=== PATIENT | female | born 1960 | race Caucasian/White ===

== ENCOUNTER 2018-06-06 14:25 | Observation (INO) | payer MEDICAID ==
[2018-06-06 16:01] LABS: ADD MAN DIFF? NO
[2018-06-06 16:21] LABS: ANION GAP 13 (8-16); BLOOD UREA NITROGEN 13 mg/dl (7-20); CALCIUM 9.7 mg/dl (8.4-10.2); CARBON DIOXIDE 25 mmol/L (21-31); CHLORIDE 105 mmol/L (97-110); CREATININE 0.53 mg/dl (0.44-1.00); GLUCOSE 169 mg/dl (70-220); POTASSIUM 4.2 mmol/L (3.5-5.1); SODIUM 139 mmol/L (135-144)
[2018-06-06 16:29] LABS: EOSINOPHILS % (M) 2 % (0-7); ERYTHROBLAST% (NRBC) (M) 1 % (0-0); GIANT THROMBO% (M) 4 % (0-0); LYMPHOCYTES % (M) 23 % (15-51); MONOCYTES % (M) 4 % (0-11); PLATELET ESTIMATE NORMAL; REACTIVE LYMPHOCYTES% (M) 4 % (0-0); SEGMENTED NEUTROPHILS (M) % 67 % (39-77); SMUDGE%M 1 % (0-0)
[2018-06-06] MEDS: ASPIRIN 81 MG TAB PO (16:36)
[2018-06-06 16:45] LABS: WHITE BLOOD COUNT 7.4 10^3/ul (4.8-10.8)
[2018-06-06 16:45] LABS: ABNORMAL IP MESSAGE 1; BASOPHIL # 0.1 10^3/ul (0.0-0.1); BASOPHILS % 0.8 % (0.0-2.0); EOSINOPHILS # 0.1 10^3/ul (0.0-0.5); HEMATOCRIT 39.6 % (37.0-47.0); HEMOGLOBIN 13.1 g/dl (12.0-16.0); LYMPHOCYTES # 1.8 10^3/ul (0.8-2.9); LYMPHOCYTES #M 1.7 10^3/ul (0.8-2.9); LYMPHOCYTES % 24.5 % (15.0-51.0); MEAN CORPUSCULAR HGB CONC 33.1 g/dl (32.0-37.0); MEAN CORPUSCULAR VOLUME 87.6 fl (82.0-101.0); MEAN PLATELET VOLUME 13.6 fl (7.4-10.4); MONOCYTE # 0.4 10^3/ul (0.3-0.9); MONOCYTE #M 0.2 10^3/ul (0.3-0.9); NEUTROPHILS % 67.2 % (39.0-77.0); PLATELET COUNT 154 10^3/UL (140-415); REACTIVE LYMPHOCYTES #M 0.2 10^3/ul (0.0-0.0); RED BLOOD COUNT 4.52 10^6/ul (4.20-5.40); RED CELL DISTRIBUTION WIDTH 12.4 % (11.5-14.5)
[2018-06-06 16:47] LABS: TROPONIN-I < 0.010 ng/ml (0.000-0.120)
[2018-06-06 16:56] LABS: POSITIVE DIFF @See below
[2018-06-06] MEDS ORDERED: ACETAMINOPHEN 325 MG TAB PO ×2 (17:30)
[2018-06-06] MEDS ORDERED: LORAZEPAM 0.5 MG TAB PO (17:30)
[2018-06-06] MEDS ORDERED: HYDROCODONE/APAP (5/325) TAB PO (17:30)
[2018-06-06] MEDS ORDERED: NITROGLYCERIN (SL) 0.4 MG TAB SL (17:30)
[2018-06-06] MEDS ORDERED: morphine 2 MG INJ IV (17:30)
[2018-06-06] MEDS ORDERED: DOCUSATE SODIUM 100 MG CAP PO (17:30)
[2018-06-06] MEDS ORDERED: NACL 0.9% 3 ML SYG IV (17:30)
[2018-06-06] MEDS ORDERED: ONDANSETRON 4 MG INJ IV ×2 (17:30)
[2018-06-06] MEDS ORDERED: MAGNESIUM HYDROXIDE 30ML CUP PO (17:30)
[2018-06-06] MEDS ORDERED: LABETALOL HCL 20MG INJ IV (18:00)
[2018-06-06 18:03] LABS: INR 0.97
[2018-06-06] MEDS ORDERED: GLUCAGON 1 MG INJ IM (18:30)
[2018-06-06] MEDS ORDERED: DEXTROSE 50% 50 ML SYRINGE IV ×2 (18:30)
[2018-06-06] MEDS ORDERED: GLUCOSE GEL 15 GRAM TUBE PO ×2 (18:30)
[2018-06-06] MEDS ORDERED: GLUCOSE GEL 15 GRAM TUBE BUCCAL (18:30)
[2018-06-06] MEDS: INSULIN ASPART [NOVOLOG] 3 ML PEN SC ×2 (19:24→21:28)
[2018-06-06] MEDS: ATORVASTATIN 40 MG TAB PO (21:25)
[2018-06-06] MEDS: LISINOPRIL 20 MG TAB PO (21:25)
[2018-06-06] MEDS: FAMOTIDINE 20 MG INJ IV (21:26)
[2018-06-06] MEDS: HEPARIN 5,000 UNIT/0.5 ML VIAL SC (21:43)
[2018-06-06 23:20] LABS: CREATINE KINASE 111 IU/L (23-200)
[2018-06-06 23:31] LABS: CK INDEX 0.8; CK-MB 0.93 ng/ml (0.0-2.4); TROPONIN-I < 0.010 ng/ml (0.000-0.120)
[2018-06-07] MEDS: ACCU-CHEK XX (02:23)
[2018-06-07] MEDS: HEPARIN 5,000 UNIT/0.5 ML VIAL SC ×3 (05:36→21:08)
[2018-06-07 05:43] LABS: ADD MAN DIFF? NO
[2018-06-07 06:07] LABS: ABNORMAL IP MESSAGE 1; BASOPHIL # 0.1 10^3/ul (0.0-0.1); BASOPHILS % 1.3 % (0.0-2.0); EOSINOPHILS # 0.2 10^3/ul (0.0-0.5); EOSINOPHILS % 2.9 % (0.0-7.0); HEMATOCRIT 38.2 % (37.0-47.0); HEMOGLOBIN 12.4 g/dl (12.0-16.0); LYMPHOCYTES # 2.3 10^3/ul (0.8-2.9); LYMPHOCYTES % 41.4 % (15.0-51.0); MEAN CORPUSCULAR HGB CONC 32.5 g/dl (32.0-37.0); MEAN CORPUSCULAR VOLUME 89.3 fl (82.0-101.0); MEAN PLATELET VOLUME 14.1 fl (7.4-10.4); MONOCYTE # 0.4 10^3/ul (0.3-0.9); MONOCYTES % 7.4 % (0.0-11.0); NEUTROPHIL # 2.6 10^3/ul (1.6-7.5); NEUTROPHILS % 46.8 % (39.0-77.0); PLATELET COUNT 156 10^3/UL (140-415); RED BLOOD COUNT 4.28 10^6/ul (4.20-5.40); RED CELL DISTRIBUTION WIDTH 12.7 % (11.5-14.5)
[2018-06-07 06:07] LABS: WHITE BLOOD COUNT 5.5 10^3/ul (4.8-10.8)
[2018-06-07 06:11] LABS: CREATINE KINASE 92 IU/L (23-200)
[2018-06-07 06:23] LABS: CK INDEX 0.8; CK-MB 0.77 ng/ml (0.0-2.4); TROPONIN-I < 0.010 ng/ml (0.000-0.120)
[2018-06-07 06:24] LABS: POSITIVE DIFF @See below
[2018-06-07 06:26] LABS: ALANINE AMINOTRANSFERASE 28 IU/L (13-69); ALBUMIN/GLOBULIN RATIO 1.25; ALKALINE PHOSPHATASE 91 IU/L (42-121); ANION GAP 10 (8-16); ASPARTATE AMINO TRANSFERASE 30 IU/L (15-46); BILIRUBIN,INDIRECT 0.6 mg/dl (0-1.1); BILIRUBIN,TOTAL 0.6 mg/dl (0.2-1.3); BLOOD UREA NITROGEN 15 mg/dl (7-20); CALCIUM 9.4 mg/dl (8.4-10.2); CARBON DIOXIDE 26 mmol/L (21-31); CHLORIDE 108 mmol/L (97-110); CHOL/HDL RATIO 3.7 RATIO; CHOLESTEROL 157 mg/dl (100-200); CREATININE 0.62 mg/dl (0.44-1.00); GLUCOSE 141 mg/dl (70-220); HDL CHOLESTEROL 42 mg/dl (37-92); LDL CHOLESTEROL,CALCULATED 89 mg/dl; POTASSIUM 4.1 mmol/L (3.5-5.1); SODIUM 140 mmol/L (135-144); TOTAL PROTEIN 7.2 g/dl (6.1-8.1); TRIGLYCERIDES 130 mg/dl (0-149)
[2018-06-07 07:35] LABS: HEMOGLOBIN A1C 8.2 % (0-5.9)
[2018-06-07] MEDS: INSULIN ASPART [NOVOLOG] 3 ML PEN SC ×4 (07:44→21:00)
[2018-06-07] MEDS: ASPIRIN 81 MG TAB PO (08:02)
[2018-06-07] MEDS: LISINOPRIL 20 MG TAB PO (08:02)
[2018-06-07] MEDS: FAMOTIDINE 20 MG INJ IV ×2 (08:02→21:04)
[2018-06-07] MEDS: LINAGLIPTIN 5 MG TABLET PO (09:58)
[2018-06-07] MEDS: metFORMIN 500 MG TAB PO ×2 (09:58→17:18)
[2018-06-07] MEDS ORDERED: morphine LIQ (10 MG/5 ML) CUP PO (20:30)
[2018-06-07] MEDS: ATORVASTATIN 40 MG TAB PO (21:04)
[2018-06-08] MEDS: ACCU-CHEK XX (02:00)
[2018-06-08] MEDS: HEPARIN 5,000 UNIT/0.5 ML VIAL SC ×2 (05:45→14:00)
[2018-06-08 06:40] LABS: ADD MAN DIFF? NO
[2018-06-08 06:43] LABS: WHITE BLOOD COUNT 6.9 10^3/ul (4.8-10.8)
[2018-06-08 06:43] LABS: ABNORMAL IP MESSAGE 1; BASOPHIL # 0.1 10^3/ul (0.0-0.1); EOSINOPHILS # 0.2 10^3/ul (0.0-0.5); EOSINOPHILS % 2.5 % (0.0-7.0); HEMATOCRIT 37.9 % (37.0-47.0); HEMOGLOBIN 12.1 g/dl (12.0-16.0); LYMPHOCYTES % 43.4 % (15.0-51.0); MEAN CORPUSCULAR HEMOGLOBIN 28.8 pg (29.0-33.0); MEAN CORPUSCULAR HGB CONC 31.9 g/dl (32.0-37.0); MEAN CORPUSCULAR VOLUME 90.2 fl (82.0-101.0); MEAN PLATELET VOLUME 13.6 fl (7.4-10.4); MONOCYTE # 0.5 10^3/ul (0.3-0.9); MONOCYTES % 6.9 % (0.0-11.0); NEUTROPHIL # 3.2 10^3/ul (1.6-7.5); NEUTROPHILS % 46.1 % (39.0-77.0); PLATELET COUNT 147 10^3/UL (140-415); RED CELL DISTRIBUTION WIDTH 12.6 % (11.5-14.5)
[2018-06-08 06:47] LABS: POSITIVE DIFF @See below
[2018-06-08 07:20] LABS: ANION GAP 11 (8-16); BLOOD UREA NITROGEN 22 mg/dl (7-20); CALCIUM 9.5 mg/dl (8.4-10.2); CARBON DIOXIDE 26 mmol/L (21-31); CHLORIDE 108 mmol/L (97-110); CREATININE 0.75 mg/dl (0.44-1.00); GLUCOSE 157 mg/dl (70-220); MAGNESIUM 1.8 mg/dl (1.7-2.5); PHOSPHORUS 4.6 mg/dl (2.5-4.9); POTASSIUM 4.9 mmol/L (3.5-5.1); SODIUM 140 mmol/L (135-144)
[2018-06-08] MEDS: INSULIN ASPART [NOVOLOG] 3 ML PEN SC ×2 (07:32→11:44)
[2018-06-08] MEDS: metFORMIN 500 MG TAB PO (07:47)
[2018-06-08] MEDS: LISINOPRIL 10 MG TAB PO (08:07)
[2018-06-08] MEDS: LINAGLIPTIN 5 MG TABLET PO (08:07)
[2018-06-08] MEDS: FAMOTIDINE 20 MG INJ IV (08:07)
[2018-06-08] MEDS: ASPIRIN 81 MG TAB PO (08:07)
[2018-06-08] MEDS ORDERED: LISINOPRIL 20 MG TAB PO (09:00)
[2018-06-09] MEDS ORDERED: LISINOPRIL 5 MG TAB PO (09:00)
== END 2018-06-08 14:35 | disposition home or self-care (01) ==
LOC: MS3 17:17 → TEL 06-08 01:55 → E/R 14:25
DX: R07.9 Chest pain, unspecified (principal); R00.2 Palpitations; R00.1 Bradycardia, unspecified; I10 Essential (primary) hypertension; E11.9 Type 2 diabetes mellitus without complications; E78.5 Hyperlipidemia, unspecified; Z83.3 Family history of diabetes mellitus; Z82.49 Family history of ischemic heart disease and other diseases of the circulatory system
CPT/HCPCS: 36415; 71045; 80048; 80053; 80061; 82550; 82553; 82962; 83036; 83735; 84100; 84443; 84484; 85025; 85610; 93005; 93306; 99217; 99285-25; G0378